=== PATIENT | female | born 1975 ===

== ENCOUNTER 2021-02-01 11:30 | Emergency (ER) | payer SELFPAY ==
[~2021-02-01] VITALS: Ht 167.6 cm; Wt 81.8 kg
[2021-02-01 11:35] VITALS: Ht 167.6 cm; Wt 81.8 kg
[2021-02-01] MEDS ORDERED: HYDROCODON-ACE1 EAC7 PO (12:24)
[2021-02-01] MEDS ORDERED: CYCLOBENZAPRINE10 MG PO (12:24)
[2021-02-01] MEDS ORDERED: IBUPROFEN800 MG PO (12:24)
[2021-02-01 12:25] VITALS: BP 138/98
== END 2021-02-01 12:46 | disposition home or self-care (01) ==
LOC: D.ER 11:30
DX: S43.004A Unspecified dislocation of right shoulder joint, initial encounter (principal); W19.XXXA Unspecified fall, initial encounter; Y93.9 Activity, unspecified; Y92.9 Unspecified place or not applicable